=== PATIENT | female | born 1975 | race Caucasian/White ===

== ENCOUNTER → 2025-09-01 08:15 | Outpatient (REF) | payer OTHER, SELFPAY | LOC: RAD 08:15 | PROVIDERS: ATTENDING PHYSICIAN Internal Medicine | DX: E04.1 Nontoxic single thyroid nodule (principal) | CPT/HCPCS: 76536 ==

== ENCOUNTER → 2025-09-05 14:11 | Outpatient (REF) | payer OTHER, SELFPAY | LOC: WDC 14:11 | PROVIDERS: ATTENDING PHYSICIAN Internal Medicine | DX: Z12.31 Encounter for screening mammogram for malignant neoplasm of breast (principal) | CPT/HCPCS: 77063; 77067 ==